=== PATIENT | female | born 1945 | race Caucasian/White ===

== ENCOUNTER 2022-03-15 15:14 | Emergency (ER) | payer MEDICARE, SELFPAY ==
[2022-03-15 15:14] VITALS: BP 169/85; PULSE 65; RESP 18; TEMP 36.2; O2SAT 98; BMI 39.9
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
--- NOTE | 2022-03-15 15:46 | RAD_ITS ---
INDICATION: KNEE PAIN EXAMINATION/TECHNIQUE: X-RAY - RIGHT XR Knee 2 Views COMPARISON: None. FINDINGS: SOFT TISSUES: No soft tissue swelling or gas. No radiopaque foreign body. BONES/JOINTS: Total replacement of the knee. The hardware components are well aligned. RAD/Knee 1 or 2 Views IMPRESSION: Total replacement of the knee without acute bony injury. Electronically Signed: Riley Paz DO at 16:44 EST ,
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
== END 2022-03-15 18:09 | disposition home or self-care (01) ==
PROVIDERS: Emergency Provider Emergency Medicine; Visit Provider Emergency Medicine
DX: S80.02XA Contusion of left knee, initial encounter (principal); S80.12XA Contusion of left lower leg, initial encounter; V47.6XXA Car passenger injured in collision with fixed or stationary object in traffic accident, initial encounter; Z87.891 Personal history of nicotine dependence; S80.01XA Contusion of right knee, initial encounter; Y92.89 Other specified places as the place of occurrence of the external cause; I10 Essential (primary) hypertension; F32.A Depression, unspecified; Z79.899 Other long term (current) drug therapy
CPT/HCPCS: 73560; 73590; 99282